=== PATIENT | female | born 1985 | race Caucasian/White ===

== ENCOUNTER 2017-12-30 18:54 | Emergency (ER) | payer BC ==
[2017-12-30 19:18] VITALS: TEMP 98.5
--- NOTE | 2017-12-30 19:44 | RAD ---
EXAM DESCRIPTION: Chest,2 Views CLINICAL HISTORY:32 years Female, left chest pain 2 days Comparison: None FINDINGS: No focal lung consolidation. No pleural effusion. No pneumothorax. Cardiac and mediastinal silhouette is unremarkable. No acute osseous abnormality. Soft tissues are unremarkable. IMPRESSION: No acute findings. No focal lung consolidation. Electronically signed by: Hosea Davidson MD 12/30/2017 7:43 PM CDT
[2017-12-30] MEDS: POTASSIUM CHLORIDE ELIXIR 20 MEQ/15 ML UD PO ONE (20:15)
[2017-12-30] MEDS: HYDROcodone 5MG/APAP 325MG 1 EA TAB PO ONE (20:16)
--- NOTE | 2017-12-30 21:15 | ED.PDOC ---
History of Present Illness - General Chief Complaint: General Stated Complaint: "hurts to move", shortness of breath Time Seen by Provider: 12/30/17 18:59 Source: patient Exam Limitations: no limitations - History of Present Illness Initial Comments: the patient is a 32-year-old female presenting to the emergency room secondary to left anterior chest discomfort that has been present for the last 3 days. It is worse with twisting and turning and moving and taking a deep breath. She has not had a cough. No history of any DVT or pulmonary embolus and no outstanding risk for those. No central chest pain. No shortness of breath. No nausea vomiting or diarrhea. No syncope or near syncope. No palpitations. Severity: moderate Improving Factors: nothing Worsening Factors: nothing Associated Symptoms: denies symptoms Allergies/Adverse Reactions: Allergies NO KNOWN ALLERGY Allergy (Verified 12/30/17 19:37) Home Medications: Ambulatory Orders Cyclobenzaprine HCl [Flexeril] 5 mg PO TID PRN #30 tab 12/30/17 predniSONE [Prednisone] 20 mg PO DAILY #3 tab 12/30/17 Review of Systems - Review of Systems Constitutional: States: no symptoms reported EENTM: States: no symptoms reported Respiratory: States: no symptoms reported Cardiology: States: chest pain Gastrointestinal/Abdominal: States: no symptoms reported Genitourinary: States: no symptoms reported Musculoskeletal: States: no symptoms reported Skin: States: no symptoms reported Neurological: States: no symptoms reported Endocrine: States: no symptoms reported All other Systems: No Change from Baseline Past Medical History (General) - Patient Medical History Hx Asthma: No Hx Cardiac Disorders: No Hx Hypertension: No Hx Diabetes: No Hx Gastroesophageal Reflux: No Hx Renal Disease: No - Vaccination History Hx Tetanus, Diphtheria Vaccination: No Hx Influenza Vaccination: No - Social History Hx Tobacco Use: No Hx Alcohol Use: No Family Medical History - Family History Father Hx Family Diabetes: Yes Physical Exam - Physical Exam General Appearance: Alert, Anxious, No apparent distress Eye Exam: bilateral normal Ears, Nose, Throat: hearing grossly normal, normal ENT inspection, normal pharynx Neck: full range of motion, supple, normal inspection Respiratory: lungs clear, normal breath sounds, no respiratory distress, no accessory muscle use Cardiovascular/Chest: normal peripheral pulses, regular rate, rhythm, no edema Peripheral Pulses: radial,right: 2+, radial,left: 2+, dorsalis pedis,right: 2+, dorsalis pedis,left: 2+ Gastrointestinal/Abdominal: non tender, soft Rectal Exam: deferred Back Exam: normal inspection, no CVA tenderness Extremity: non-tender, normal inspection, no pedal edema, normal capillary refill 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 This is most consistent with an intercostal muscle strain however mild pleurisy could also give a similar picture. The patient is going to be placed on prednisone 20 mg daily for 3 days and she'll be written for Flexeril as a muscle relaxer. She needs to follow-up with her primary care doctor next week. ER warnings were given for any worsening. - Results/Orders Results/Orders: Laboratory Tests 12/30/17 12/30/17 12/30/17 19:30 19:30 19:30 WBC 10.5 RBC 4.60 Hgb 13.7 Hct 39.7 MCV 86.3 MCH 29.7 MCHC 34.4 RDW 12.8 Plt Count 368 MPV 7.3 L Absolute Neuts (auto) 6.60 Absolute Lymphs (auto) 2.80 Absolute Monos (auto) 0.60 Absolute Eos (auto) 0.40 Absolute Basos (auto) 0.00 Neutrophils % 63.2 Lymphocytes % 26.6 Monocytes % 6.1 Eosinophils % 3.6 Basophils % 0.5 PT 11.6 INR 1.000 PTT (SP) 36.7 H D-Dimer, Quantitative Sodium 138 Potassium 3.4 L Chloride 105 Carbon Dioxide 28 Anion Gap 8.4 L BUN 12 Creatinine 0.45 L BUN/Creatinine Ratio 26.7 H Random Glucose 116 H Serum Osmolality 276.4 Calcium 9.0 Magnesium 1.9 Total Bilirubin 0.4 AST 28 ALT 24 Alkaline Phosphatase 54 Creatine Kinase 167 H CK-MB (CK-2) 2.0 Troponin I < 0.02 B-Natriuretic Peptide 8.4 Serum Total Protein 7.7 Albumin 4.1 Globulin 3.6 H Albumin/Globulin Ratio 1.1 Serum HCG, Qual 12/30/17 19:30 WBC RBC Hgb Hct MCV MCH MCHC RDW Plt Count MPV Absolute Neuts (auto) Absolute Lymphs (auto) Absolute Monos (auto) Absolute Eos (auto) Absolute Basos (auto) Neutrophils % Lymphocytes % Monocytes % Eosinophils % Basophils % PT INR PTT (SP) D-Dimer, Quantitative Sodium Potassium Chloride Carbon Dioxide Anion Gap BUN Creatinine BUN/Creatinine Ratio Random Glucose Serum Osmolality Calcium Magnesium Total Bilirubin AST ALT Alkaline Phosphatase Creatine Kinase CK-MB (CK-2) Troponin I B-Natriuretic Peptide Serum Total Protein Albumin Globulin Albumin/Globulin Ratio Serum HCG, Qual Negative EKG showed normal sinus rhythm at a rate of 100 bpm. She does have some mild left atrial dilation. There is borderline slow R-wave progression in anterior leads. She does have a lone Q wave in lead 3. Normal QT corrected interval. Chest x-ray shows no significant infiltrates and no evidence of fluid overload or widening of the mediastinum. No obvious bony pathology of the ribs. Departure - Departure Clinical Impression: Acute chest wall pain Disposition: Discharge to Home or Self Care Condition: Fair Departure Forms: ED Discharge - Pt. Copy, Patient Portal Self Enrollment Instructions: DI for Atypical Chest Pain Diet: regular diet Activity: increase activity as tolerated Referrals: Tigist Zendejas NP [Primary Care Provider] - 1-2 Weeks Prescriptions: Cyclobenzaprine HCl [Flexeril] 5 mg PO TID PRN #30 tab PRN Reason: Muscle Spasms predniSONE [Prednisone] 20 mg PO DAILY #3 tab Home Medications: Ambulatory Orders Cyclobenzaprine HCl [Flexeril] 5 mg PO TID PRN #30 tab 12/30/17 predniSONE [Prednisone] 20 mg PO DAILY #3 tab 12/30/17 Additional Instructions: the patient is a 32-year-old female presenting to the emergency room secondary to left primarily anterior chest pain. This is most consistent with an intercostal muscle strain however mild pleurisy could also give a similar picture. The patient is going to be placed on prednisone 20 mg daily for 3 days and she'll be written for Flexeril as a muscle relaxer. She needs to follow-up with her primary care doctor next week. ER warnings were given for any worsening.
[2017-12-30] MEDS: diazePAM 2 MG TAB PO ONE (21:19)
[2017-12-30] MEDS: predniSONE 20 MG TAB PO ONE (21:20)
[2017-12-30 21:24] VITALS: BP 136/84
[2017-12-30 21:25] VITALS: O2SAT 99
== END 2017-12-30 21:25 | disposition home or self-care (01) ==
LOC: ER 18:54
DX: R07.89 Other chest pain (principal)
CPT/HCPCS: 36415; 71046; 80053; 82550; 82553; 83735; 83880; 84484; 84703; 85025; 85379; 85610; 85730; 93005; J7512